=== PATIENT | male | born 1975 | race Caucasian/White ===

== ENCOUNTER → 2021-05-17 | Day surgery (SDC) | payer OTHER | END | disposition home or self-care (01) | LOC: FAS 08:17 | DX: Z12.11 Encounter for screening for malignant neoplasm of colon (principal); I10 Essential (primary) hypertension; D12.3 Benign neoplasm of transverse colon; D12.6 Benign neoplasm of colon, unspecified; Z72.89 Other problems related to lifestyle ==

== ENCOUNTER → 2021-10-18 | Day surgery (SDC) | payer OTHER ==
[~2021-10-18] VITALS: Ht 180.3 cm; Wt 108.9 kg
[~2021-10-18] MED LIST: LIPITOR20 MG PO
== END | disposition home or self-care (01) ==
LOC: FAS 07:57
DX: Z12.11 Encounter for screening for malignant neoplasm of colon (principal); D12.4 Benign neoplasm of descending colon; D12.8 Benign neoplasm of rectum; Z86.010 Personal history of colon polyps; E78.00 Pure hypercholesterolemia, unspecified; G47.33 Obstructive sleep apnea (adult) (pediatric); Z99.89 Dependence on other enabling machines and devices; Z79.899 Other long term (current) drug therapy; Z72.89 Other problems related to lifestyle
CPT/HCPCS: J2704; J7120

== ENCOUNTER → 2022-03-10 | Day surgery (SDC) | payer OTHER ==
[~2022-03-10] VITALS: Ht 180.3 cm; Wt 109.8 kg
== END | disposition home or self-care (01) ==
LOC: FAS 08:23
DX: D12.3 Benign neoplasm of transverse colon (principal); D12.4 Benign neoplasm of descending colon; D12.8 Benign neoplasm of rectum; I10 Essential (primary) hypertension; E78.00 Pure hypercholesterolemia, unspecified; Z86.010 Personal history of colon polyps
CPT/HCPCS: J2704; J7120